=== PATIENT | male | born 1995 | race Caucasian/White ===

== ENCOUNTER 2018-08-20 17:30 | Emergency (ER) | payer BC ==
--- NOTE | 2018-08-20 17:36 | ER Report ---
History and Physical Time Seen By MD: 17:36 HPI/ROS CHIEF COMPLAINT: Left toe injury HISTORY OF PRESENT ILLNESS: This is a 22-year-old male up since the emergency department for left toe injury. Patient states that about one hour prior to arrival he was moving a file cabinet and some socks, file cabinet fell over landing on his left great toe, bleeding is controlled. There is a large what appears to be possible open fracture of the left great toe. Sensation is intact. Denies any other injuries. Tetanus was up-to-date within the last 4-5 years. REVIEW OF SYSTEMS: Respiratory: No cough, no dyspnea. Cardiovascular: No chest pain, no palpitations. Gastrointestinal: No vomiting, no abdominal pain. Musculoskeletal: As above. Integumentary: As above. Allergies: Coded Allergies: No Known Drug Allergies (Unverified , 08/20/18) Home Meds Active Scripts Cephalexin 500 Mg Tab (KEFLEX 500 MG TAB) 500 Mg Tablet, 500 MG PO Q6H, #28 TAB Prov:RAIN ZAIDI CASE MANAGEMENT COORDINATOR- 08/20/18 Past Medical/Surgical History The patient has no significant past medical or surgical history. Patient states his tetanus is up-to-date. Reviewed Nurses Notes: Yes Constitutional Vital Sign - Last 24 Hours 08/20/18 08/20/18 08/20/18 08/20/18 17:33 17:34 18:00 18:30 Temp 97.5 Pulse 90 83 70 Resp 16 B/P (MAP) 131/86 (101) 131/86 129/83 (98) 98/82 (87) Pulse Ox 94 91 95 O2 Delivery Room Air 08/20/18 08/20/18 08/20/18 19:00 19:30 19:44 Pulse 81 79 B/P (MAP) 118/87 (97) 129/91 (104) 121/90 (100) Pulse Ox 91 93 Physical Exam General Appearance: The patient is alert, has no immediate need for airway protection and no current signs of toxicity. Eyes: Pupils equal and round no injection. Respiratory: Chest is non tender, lungs are clear to auscultation. Cardiac: regular rate and rhythm. Gastrointestinal: Abdomen is soft and non tender, no masses, bowel sounds normal. Musculoskeletal: Neck: Neck is supple and non tender. Extremities/Skin: crush injury to left great toe, 3 cm laceration involving the edge of the toenail. Bleeding controlled. DIFFERENTIAL DIAGNOSIS: After history and physical exam differential diagnosis was considered for open fracture, laceration, crush injury, avulsion, amputation. Medical Decision Making EKG/Imaging Imaging ATIENT NAME: Scot Felipe : 1995 MR: [id number] V: [id number] EXAM DATE: ORDERING PHYSICIAN: RAIN ZIADI TECHNOLOGIST: Location: [facility] Patient: Scot Felipe : 1995 Visit/Account:[id number] Date of Sevice: 08/20/2018 FOOT 3 VIEW LEFT Indication: Pain to the left great toe after injury. Possible open fracture. Comparison: None Available Findings: 3 views of the left foot were obtained. No acute fracture or dislocation. No bony lesions, periosteal abnormality or degenerative changes. Soft tissue disruption the tip of the great toe. No radiopaque foreign body. IMPRESSION: 1.No acute osseous abnormality of the left foot or great toe. Report Dictated By: Mode Murray at 08/20/2018 6:33 PM Report E-Signed By: Mode Murray at 08/20/2018 6:37 PM WSN:[id number] ED Course/Re-evaluation ED Course The patient was admitted to room. A history and physical obtained. Differential diagnoses were considered. X-ray of the left foot and great toe negative for acute osseous abnormalities. Given the extent of the injuries I did however give the patient 1 g of Ancef. He was also started on antibiotics. The wound was repaired as noted below. A dressing was applied. Patient tolerated procedure well. Instructed to monitor closely for signs of infection, where loose fitting footwear, follow-up with his primary care provider for reevaluation and suture removal. He expressed understanding was discharged home. Procedure: Laceration repair. Verbal consent was obtained from the patient. The 3 cm laceration on the left great toe digitally blocked the wound was scrubbed, draped and explored to its base with a gloved finger. There were deep structures involved. No tendon injury was identified. The wound was repaired with 2, 5-0 Vicryl simple interrupted sutures, 9, 5-0 Prolene simple interrupted sutures. The wound repair was complex. The procedure was performed by myself. Decision to Disposition Date: Aug 20, 2018 Decision to Disposition Time: 19:46 Depart Departure Latest Vital Signs Vital Signs Date Time Temp Pulse Resp B/P (MAP) Pulse Ox O2 Delivery O2 Flow Rate FiO2 08/20/18 19:44 121/90 (100) 08/20/18 19:30 79 93 08/20/18 17:34 97.5 16 Room Air Impression: Primary Impression: Crushing injury of left great toe Additional Impression: Laceration of left great toe Condition: Improved Disposition: HOME OR SELF-CARE Referrals: TREY KEENE 10 Days New Scripts Cephalexin 500 Mg Tab (KEFLEX 500 MG TAB) 500 Mg Tablet 500 MG PO Q6H, #28 TAB Prov: RAIN ZAIDI 08/20/18 Patient Instructions: Acute Wound Care (ED), Crush Injury (ED), Laceration (ED) Additional Instructions: Keep wound dry for 48 hours. Follow up with your primary care provider in the next 10-12 days to have sutures removed. Monitor for signs of infection; redness, swelling, heat, discharge, increasing pain or red streaking. Take Tylenol or Ibuprofen as needed for pain. Return to the ER with any concerns. You may change dressing as needed. Take the antibiotics as prescribed. Problem Qualifiers Primary Impression: Crushing injury of left great toe Encounter type: initial encounter Qualified Codes: S97.112A - Crushing injury of left great toe, initial encounter Additional Impression: Laceration of left great toe Encounter type: initial encounter Damage to nail status: with damage Foreign body presence: without foreign body Qualified Codes: S91.212A - Laceration without foreign body of left great toe with damage to nail, initial encounter RAIN ZAIDI-ARNALDO Aug 20, 2018 17:36
--- NOTE | 2018-08-20 18:41 | RADIOLOGY IMAGING REPORT ---
FACILITY: [facility] PATIENT NAME: Scot Felipe : 1995 MR: [id number] V: [id number] EXAM DATE: ORDERING PHYSICIAN: RAIN ZAIDI TECHNOLOGIST: Location: [facility] Patient: Scot Felipe : 1995 Visit/Account:[id number] Date of Sevice: 08/20/2018 FOOT 3 VIEW LEFT Indication: Pain to the left great toe after injury. Possible open fracture. Comparison: None Available Findings: 3 views of the left foot were obtained. No acute fracture or dislocation. No bony lesions, periosteal abnormality or degenerative changes. So ft tissue disruption the tip of the great toe. No radiopaque foreign body. IMPRESSION: 1.No acute osseous abnormality of the left foot or great toe. Report Dictated By: Mode Murray at 08/20/2018 6:33 PM Report E-Signed By: Mode Murray at 08/20/2018 6:37 PM WSN:[id number]
[2018-08-20] MEDS ORDERED: WATER STERILE 10 ML VIAL IM ONLY ONE (19:05)
[2018-08-20] MEDS ORDERED: ceFAZolin 1 GM VIAL IM ONE (19:05)
[2018-08-20 19:44] VITALS: BP 121/90
[2018-08-20] MEDS ORDERED: CEPH500T7 PO (19:49)
== END 2018-08-20 20:07 | disposition home or self-care (01) ==
LOC: ER 17:37
DX: S97.112A Crushing injury of left great toe, initial encounter (principal); S91.212A Laceration without foreign body of left great toe with damage to nail, initial encounter; W20.8XXA Other cause of strike by thrown, projected or falling object, initial encounter
CPT/HCPCS: 12042; 73630; 96372; 99283; A4216; J0690